=== PATIENT | female | born 2000 | race Caucasian/White ===

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

== ENCOUNTER 2024-07-05 03:22 | Emergency (ER) | payer MEDICAID ==
[~2024-07-05] VITALS: Ht 170.2 cm; Wt 70.9 kg
[2024-07-05 05:59] VITALS: BP 111/66
== END 2024-07-05 06:00 | disposition home or self-care (01) ==
LOC: ED 03:22
DX: S20.229A Contusion of unspecified back wall of thorax, initial encounter (principal); S80.02XA Contusion of left knee, initial encounter; S80.01XA Contusion of right knee, initial encounter; S40.022A Contusion of left upper arm, initial encounter; S00.93XA Contusion of unspecified part of head, initial encounter; S40.811A Abrasion of right upper arm, initial encounter; Y04.8XXA Assault by other bodily force, initial encounter; Y92.009 Unspecified place in unspecified non-institutional (private) residence as the place of occurrence of the external cause